=== PATIENT | male | born 1940 | race Caucasian/White ===

== ENCOUNTER 2018-04-17 12:55 | Inpatient (IN) | payer OTHER, MEDICARE ==
--- NOTE | 2018-04-17 13:58 | PDOC ---
History of Present Illness - General Chief Complaint: Injury Stated Complaint: INJURY Time Seen by Provider: 04/17/18 13:47 History Source: Patient Exam Limitations: No Limitations - History of Present Illness Initial Comments: 04/17/18 15:20 Was walking dog this morning, tripped on uneven sidewalk/tree stump and fell to the right side injuring bilateral knees and right hip. Patient was unable to get up immediately and crawled over to stair where he was able to lift himself and get back to his house. States has been using his 's walker for pain progressively worsening so came for emergency evaluation. Occurred: reports: this morning Severity: reports: moderate Pain Location: reports: lower extremity, pelvis Method of Injury: Yes: fall Modifying Factors: improves with: None Loss of Consciousness: no loss of consciousness Past History - Travel Traveled outside of the country in the last 30 days: No Close contact w/someone who was outside of country & ill: No - Past Medical History Allergies/Adverse Reactions: Allergies Allergy/AdvReac Type Severity Reaction Status Date / Time No Known Allergies Allergy Verified 04/17/18 13:23 Home Medications: Ambulatory Orders NK [No Known Home Medication] 08/16/15 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 No: Fever, Malaise HEENTM: Yes: See HPI. No: Symptoms Reported Respiratory: Yes: See HPI. No: Symptoms reported Cardiac (ROS): No: Symptoms Reported ABD/GI: No: Symptoms Reported Musculoskeletal: Yes: Symptoms Reported, See HPI, Joint Pain, Joint Swelling, Muscle Weakness (right leg/ hip) Integumentary: Yes: See HPI. No: Symptoms Reported, Bruising Neurological: Yes: See HPI. No: Symptoms reported, Headache All Other Systems: Reviewed and Negative *Physical Exam - Vital Signs Last Vital Signs Temp Pulse Resp BP Pulse Ox 98.3 F 73 16 97/47 L 96 04/17/18 13:24 04/17/18 13:24 04/17/18 13:24 04/17/18 13:24 04/17/18 13:24 - Physical Exam General Appearance: Yes: Nourished, Appropriately Dressed, Apparent Distress, Mild Distress HEENT: positive: RAYNA, Normal ENT Inspection. negative: TMs Normal Neck: positive: Supple. negative: Tender Respiratory/Chest: positive: Lungs Clear. negative: Chest Tender Gastrointestinal/Abdominal: positive: Normal Bowel Sounds, Soft. negative: Tender Musculoskeletal: positive: Decreased Range of Motion, Other (bilateral ecchymoses and abrasions to knees without crepitus or step-offs, has no true femur tenderness however patient has difficulty moving right leg and weightbearing. Tenderness with pelvic rocking). negative: Normal Inspection, Vertebral Tenderness Extremity: positive: Normal Inspection, Tender. negative: Normal Range of Motion Integumentary: positive: Dry, Warm, Pale Neurologic: positive: neuro ophthalmologist II-XII NML intact, Fully Oriented, Alert, Normal Mood/ Affect, Normal Response, Motor Strength 10/05 ED Treatment Course - LABORATORY CBC & Chemistry Diagram: 04/17/18 15:46 04/17/18 15:46 Medical Decision Making - Medical Decision Making 04/17/18 15:30 CT reveals femoral neck fracture of the right hip. Patient was moved to main emergency department to [address] 11 and preliminary notification to patient about fracture. Patient updated to plan. Case was discussed with Dr. Encarnacion and charge nurse Lynn. 04/17/18 15:34 *DC/Admit/Observation/Transfer Diagnosis at time of Disposition: Hip fracture Qualifiers: Encounter type: initial encounter Fracture type: closed Laterality: right Qualified Code(s): S72.001A - Fracture of unspecified part of neck of right femur, initial encounter for closed fracture - Discharge Dispostion Condition at time of disposition: Guarded - Referrals - Patient Instructions - Post Discharge Activity
[2018-04-17] MEDS ORDERED: morphine CARPU-JECT 4 MG/1 ML DISP.SYRIN IVPUSH ONE (15:48)
--- NOTE | 2018-04-17 15:52 | PDOC ---
*Physical Exam - Vital Signs Last Vital Signs Temp Pulse Resp BP Pulse Ox 98.3 F 73 16 97/47 L 96 04/17/18 13:24 04/17/18 13:24 04/17/18 13:24 04/17/18 13:24 04/17/18 13:24 ED Treatment Course - LABORATORY CBC & Chemistry Diagram: 04/17/18 15:46 04/17/18 15:46 Medical Decision Making - Medical Decision Making 77yo M with history of hypotension and oropharyngeal associated malignancy presenting with hip pain after he fell this morning. Patient was walking his dog when he tripped over an embedded rock in the ground covered by grass. He fell on his right side and was able to ambulate by leaning on another person. Patient is normally able to ambulate on his own, but presented to the ED with the aid of his wifes walker. Patient reports that he only has pain in his hip when he moves it. No fevers, chills, chest pain, or shortness of breath. -Imaging shows "nondisplaced proximal right femoral neck fracture" -Pre-op labs ordered: no anemia or leukocytosis, unremarkable electrolytes, UA negative -Patient declined IV pain medication. -Discussed case with Dr. Pablo who would like patient to be NPO after midnight -Discussed case with inpatient team who accepted patient for admission under Dr. Willis. 04/17/18 17:21 *DC/Admit/Observation/Transfer Diagnosis at time of Disposition: Hip fracture - Discharge Dispostion Condition at time of disposition: Guarded Decision to Admit order: Yes - Referrals Referrals: Gonsalo Willis MD [Primary Care Provider] - - Patient Instructions - Post Discharge Activity
[2018-04-17] MEDS ORDERED: MORPHINE SULFATE 2 MG/ML VIAL ONE (16:17)
[2018-04-17 16:31] LABS: BASO % 0.2 % (0-2.0); EOS % 0.1 % (0-4.5); HEMATOCRIT 42.1 % (35.4-49); HEMOGLOBIN 14.3 GM/dL (11.7-16.9); LYMPH % 7.2 % (8-40); MCH 28.8 pg (25.7-33.7); MCHC 33.9 g/dl (32.0-35.9); MEAN CELL VOLUME 84.9 fl (80-96); MEAN PLT VOLUME 6.8 fl (7.5-11.1); MONO % 8.3 % (3.8-10.2); NEUT % 84.2 % (42.8-82.8); PLATELET COUNT 205 K/MM3 (134-434); RBC 4.97 M/mm3 (4.00-5.60); RDW 14.6 % (11.9-15.9)
[2018-04-17 16:56] LABS: ALBUMIN 3.9 g/dl (3.4-5.0); ALK PHOS 73 U/L (45-117); ANION GAP 7 MMOL/L (8-16); BILIRUBIN,TOTAL 0.6 mg/dL (0.2-1); BLOOD UREA NITROGEN 17 mg/dL (7-18); CALCIUM 9.1 mg/dL (8.5-10.1); CHLORIDE 103 mmol/L (98-107); CO2 29 mmol/L (21-32); CREATININE 0.9 mg/dL (0.55-1.3); GLUCOSE,RANDOM 88 mg/dL (74-106); POTASSIUM 4.5 mmol/L (3.5-5.1); SGOT/AST 16 U/L (15-37); SGPT/ALT 21 U/L (13-61); SODIUM 139 mmol/L (136-145); TOT PROT 6.8 g/dl (6.4-8.2)
[2018-04-17] MEDS ORDERED: SODIUM CHLORIDE 1,000 ML IV STA (16:59)
[2018-04-17 17:04] LABS: INR 0.99 (0.83-1.09); PROTHROMBIN TIME (PATIENT) 11.7 SEC (9.7-13.0)
--- NOTE | 2018-04-17 18:01 | PDOC ---
Attending Attestation - HPI HPI: 04/17/18 18:04 Patient is a 77 year old male with a significant past medical history of who presents to the ED with complaints of right hip pain that began just prior to ED arrival. Patient reports walking outside in the snow when he lost his balance , causing him to slip and fall on his right hip. He reports experiencing no immediate pain but states pain began to gradually increase when attempting to ambulate, prompting him to come into the ED for further evaluation. Denies loss of consciousness, head trauma. Denies chest pain, Sob. Denies nausea , vomiting. Denies fevers, chills. Denies contact with sick individuals, out of state travelling. Denies any other symptoms. Allergies: None Social history: No smoking. No alcohol. No illicit drugs. Surgical history: None PMD: Dr. Willis - Physicial Exam PE: 04/17/18 18:04 Vitals: Triage Vital signs reviewed General Appearance: no acute distress, well nourished well developed Head: Atraumatic Eyes: Pupils equal reactive round, extraocular movement intact Chest Wall: Nontender Cardiac: Regular rate and rhythm, no murmurs, no rubs, no gallops Lungs: Clear to auscultation bilateral, good air movement bilaterally Abdomen: Soft, non distended, normal bowel sounds, non tender to palpation Extremities: +Tenderness to palpation to right hip no cyanosis, clubbing, Skin: Warm and dry, no rashes or lesions, no rash, no petechiae Neuro: AOX3; Cranial Nerves 2-12 grossly intact, Strength intact to all extremities, Sensation intact to all extremities, Psych: Normal mood, normal affect <Jarrett Husain - Last Filed: 04/17/18 18:28> - Resident Resident Name: Jacqueline Moore - ED Attending Attestation I have performed the following: I have examined & evaluated the patient, The case was reviewed & discussed with the resident, I agree w/resident's findings & plan, Exceptions are as noted - Medical Decision Making 04/17/18 21:50 Status post mechanical trip and fall on icy surface., X-ray Positive for nondisplaced right hip fracture on x-ray Orthopedics consult did nothing by mouth after midnight patient admit to medicine for further management. Offered IV pain medication but patient refuses at this time. <Valentin Encarnacion - Last Filed: 04/17/18 21:50>
[2018-04-17 18:30] LABS: URINE APPEARANCE CLEAR; URINE BILIRUBIN NEGATIVE (<2.0 mg/dL); URINE COLOR YELLOW; URINE GLUCOSE (UA) NEGATIVE (NEGATIVE); URINE KETONE NEGATIVE (NEGATIVE); URINE LEUK ESTERASE NEGATIVE (NEGATIVE); URINE NITRITE NEGATIVE (NEGATIVE); URINE PROTEIN NEGATIVE (NEGATIVE); URINE UROBILINOGEN NEGATIVE mg/dL (0.2-1.0)
--- NOTE | 2018-04-17 19:55 | PN ---
Progress Note (short form) - Note Progress Note: Chart reviewed. Plan to take to OR tomorrow afternoon. Will see pt tomorrow.
--- NOTE | 2018-04-17 22:12 | HP ---
Admitting History and Physical - Primary Care Physician PCP: Gonsalo Willis - Admission Chief Complaint: s/p Mechanical Fall, R- Hip Pain History of Present Illness: 77 y/o man from home with a past medical history of Hypotension, Oropharyngeal Ca (Chemo). Who presents to the ED s/p mechanical fall with right hip pain. Patient slipped and fell on rocks while walking in the snow. Patient was unable to bear weight, he usually ambulates with a rollator walker. Patient denies LOC or Head Trauma. He endorses right knee tenderness with abrasion to his right marley aspect and right knee. Patient reports his TD is current. Patient denies parasthesias. Patient denies fever, chills, cough, SOB, Baer, dizziness, CP, AP, N /V/D, constipation, dysuria History Source: Patient Limitations to Obtaining History: No Limitations - Past Medical History Cardiovascular: Yes: Other (Hypotension) ENT: Yes: Other (HPV Tumor to neck (chemo- completed)) - Smoking History Smoking history: Unknown if ever smoked Have you smoked in the past 12 months: No Aproximately how many cigarettes per day: 0 - Alcohol/Substance Use Hx Alcohol Use: No History of Substance Use: reports: None - Social History Usual Living Arrangement: Yes: With Spouse History of Recent Travel: No Home Medications - Allergies Allergies/Adverse Reactions: Allergies Allergy/AdvReac Type Severity Reaction Status Date / Time No Known Allergies Allergy Verified 04/17/18 13:23 - Home Medications Home Medications: Ambulatory Orders NK [No Known Home Medication] 08/16/15 Review of Systems - Review of Systems Constitutional: reports: No Symptoms Eyes: reports: No Symptoms HENT: reports: No Symptoms Neck: reports: No Symptoms Cardiovascular: reports: No Symptoms Respiratory: reports: No Symptoms Gastrointestinal: reports: No Symptoms Genitourinary: reports: No Symptoms Breasts: reports: No Symptoms Reported Musculoskeletal: reports: Joint Pain (right hip, right knee TN) Integumentary: reports: Other (abrasion to right marley, right knee) Neurological: reports: No Symptoms Endocrine: reports: No Symptoms Hematology/Lymphatic: reports: No Symptoms Psychiatric: reports: No Symptoms Pain Intensity: 1 Physical Examination Vital Signs: Vital Signs Temperature 98.5 F 04/17/18 19:48 Pulse Rate 69 04/17/18 19:48 Respiratory Rate 18 04/17/18 19:48 Blood Pressure 113/58 L 04/17/18 19:48 O2 Sat by Pulse Oximetry (%) 97 04/17/18 19:48 Constitutional: Yes: No Distress, Calm, Thin Eyes: Yes: WNL, Conjunctiva Clear, EOM Intact, PERRL HENT: Yes: WNL, Atraumatic, Normocephalic Neck: Yes: Supple, Trachea Midline Cardiovascular: Yes: WNL, Regular Rate and Rhythm, S1, S2 Respiratory: Yes: WNL, Regular, CTA Bilaterally Gastrointestinal: Yes: WNL, Normal Bowel Sounds, Soft ...Rectal Exam: Yes: Deferred Renal/: Yes: WNL Breast(s): Yes: WNL Musculoskeletal: Yes: Other (right) Extremities: Yes: External Rotation Edema: No Peripheral Pulses WNL: Yes Wound/Incision: Yes: Other (abrasins to right marley, right knee) ...Motor Strength: WNL Psychiatric: Yes: WNL, Alert, Oriented Labs: CBC, BMP 04/17/18 15:46 04/17/18 15:46 Current Medications Generic Name Dose Route Start Last Admin Trade Name Freq PRN Reason Stop Dose Admin Dextrose/Sodium Chloride 1,000 mls @ 42 mls/hr 04/18/18 00:01 04/18/18 02:03 D5-1/2ns - IV 42 mls/hr ASDIR CHAPIN Administration Intake & Output 04/15/18 04/16/18 04/17/18 04/18/18 23:59 23:59 23:59 23:59 Intake Total 294 Balance 294 Weight 80.739 kg 82.962 kg Imaging - Results Chest X-ray: Report Reviewed, Image Reviewed X-ray: Report Reviewed, Image Reviewed Cat Scan: Report Reviewed, Image Reviewed Problem List - Problems (1) Hip fracture Assessment/Plan: s/p mechanical fall R Hip/Pelvis Xray- nondisplaced proximal R femoral fx CT R- Hip- Acute mildly impacted right femoral neck fx Ortho aware- OR tomorrow Fall precautions Pain Mgmt Code(s): S72.009A - FRACTURE OF UNSP PART OF NECK OF UNSP FEMUR, INIT Qualifiers: Encounter type: initial encounter Fracture type: closed Laterality: right Qualified Code(s): S72.001A - Fracture of unspecified part of neck of right femur, initial encounter for closed fracture (2) Fall Assessment/Plan: s/p mechanical fall Hip/Pelvis xray- nondisplaced proximal R-femoral nck fractures CT Right Hip- Acute mildly impacted right femoral neck fracture Ortho consulted by ED resident- Dr Pablo aware, OR tomorrow Keep NPO after midnight, with IVF Neurovascular checks Monitor vitals Morphine Sulfate Pain Management- pt declines Consider Ofirmev Fall precautions Code(s): W19.XXXA - UNSPECIFIED FALL, INITIAL ENCOUNTER (3) Oropharyngeal cancer Assessment/Plan: per pt completed Chemo Code(s): C10.9 - MALIGNANT NEOPLASM OF OROPHARYNX, UNSPECIFIED Assessment/Plan 77 y/o man with PMHx of: Hypotension, Oropharyngeal Ca (chemo). Admitted for R- Displaced Hip Fx secondary to mechanical Fall for further evaluation of their emergent condition. Plan: FEN D51/2NS@42ml/hr Replete lytes prn NPO DVT ppx SCDs Dispo: Requires Inpatient Care Visit type - Emergency Visit Emergency Visit: Yes ED Registration Date: 04/17/18 Care time: The patient presented to the Emergency Department on the above date and was hospitalized for further evaluation of their emergent condition. - New Patient This patient is new to me today: Yes Date on this admission: 04/17/18 - Critical Care Critical Care patient: No
[2018-04-18] MEDS ORDERED: DEXTROSE 5%-0.45% SALINE 1,000 ML IV SCH ×2 (00:01→17:19)
[2018-04-18 02:22] VITALS: BMI 22.8
[2018-04-18] MEDS ORDERED: ACETAMINOPHEN 1000 MG/100 ML VIAL (NON FORMULARY) IVPB PRN (07:03)
[2018-04-18 07:11] LABS: BASO % 0.5 % (0-2.0); EOS % 1.6 % (0-4.5); HEMATOCRIT 39.8 % (35.4-49); HEMOGLOBIN 13.2 GM/dL (11.7-16.9); LYMPH % 13.2 % (8-40); MCHC 33.1 g/dl (32.0-35.9); MEAN CELL VOLUME 84.5 fl (80-96); MEAN PLT VOLUME 6.5 fl (7.5-11.1); MONO % 9.6 % (3.8-10.2); NEUT % 75.1 % (42.8-82.8); PLATELET COUNT 166 K/MM3 (134-434); RBC 4.71 M/mm3 (4.00-5.60); RDW 14.2 % (11.9-15.9); WHITE BLOOD COUNT 5.9 K/mm3 (4.0-10.0)
[2018-04-18 07:39] LABS: ANION GAP 6 MMOL/L (8-16); BLOOD UREA NITROGEN 17 mg/dL (7-18); CALCIUM 8.4 mg/dL (8.5-10.1); CHLORIDE 105 mmol/L (98-107); CO2 28 mmol/L (21-32); CREATININE 1.1 mg/dL (0.55-1.3); GLUCOSE,RANDOM 105 mg/dL (74-106); POTASSIUM 4.3 mmol/L (3.5-5.1); SODIUM 139 mmol/L (136-145)
--- NOTE | 2018-04-18 08:51 | EKG ---
Test Reason : Blood Pressure : / mmHG Vent. Rate : 070 BPM Atrial Rate : 070 BPM P-R Int : 188 ms QRS Dur : 098 ms QT Int : 414 ms P-R-T Axes : 045 -12 027 degrees QTc Int : 447 ms POOR DATA QUALITY, INTERPRETATION MAY BE ADVERSELY AFFECTED NORMAL SINUS RHYTHM LOW VOLTAGE QRS Confirmed by MEHDI PARKINSON MD ([id number]) on 04/18/2018 8:50:46 AM Referred By: Confirmed By:MEHDI PARKINSON MD
--- NOTE | 2018-04-18 10:51 | PN ---
Progress Note, Physician Chief Complaint: awake alert mild distress - Current Medication List Current Medications: Active Medications Acetaminophen (Ofirmev Injection -) 1,000 mg IVPB Q6H PRN PRN Reason: PAIN LEVEL 7 - 10 Dextrose/Sodium Chloride (D5-1/2ns -) 1,000 mls @ 42 mls/hr IV ASDIR CHAPIN Last Admin: 04/18/18 02:03 Dose: 42 mls/hr - Objective Vital Signs: Vital Signs Temperature 98.9 F 04/18/18 02:12 Pulse Rate 72 04/18/18 02:12 Respiratory Rate 17 04/18/18 02:12 Blood Pressure 138/68 04/18/18 02:12 O2 Sat by Pulse Oximetry (%) 98 04/18/18 02:38 Constitutional: Yes: Mild Distress Eyes: Yes: WNL HENT: Yes: WNL Neck: Yes: WNL Cardiovascular: Yes: WNL Respiratory: Yes: WNL Gastrointestinal: Yes: WNL Genitourinary: Yes: WNL Musculoskeletal: Yes: Muscle Pain, Muscle Weakness Extremities: Yes: Other Edema: No Peripheral Pulses WNL: Yes Integumentary: Yes: WNL Wound/Incision: Yes: Clean/Dry Neurological: Yes: Unsteady Gait ...Motor Strength: RLE (right hip fracture) Psychiatric: Yes: WNL Labs: CBC, BMP 04/18/18 06:00 04/18/18 06:00 INR, PTT INR 0.99 (0.83-1.09) 04/17/18 15:46 Problem List - Problems (1) Fall Code(s): W19.XXXA - UNSPECIFIED FALL, INITIAL ENCOUNTER (2) Hip fracture Code(s): S72.009A - FRACTURE OF UNSP PART OF NECK OF UNSP FEMUR, INIT Qualifiers: Encounter type: initial encounter Fracture type: closed Laterality: right Qualified Code(s): S72.001A - Fracture of unspecified part of neck of right femur, initial encounter for closed fracture Assessment/Plan medically cleared for hip surgery right pain control dvt prophylaxis pt snf
[2018-04-18] MEDS ORDERED: MIDAZOLAM HCL 2 MG/2 ML SINGLE DOSE VIAL ONE (15:38)
[2018-04-18] MEDS ORDERED: BUPIVACAINE HCL/PF 0.5% (5MG/ML) 10 ML VIAL ONE (15:41)
[2018-04-18] MEDS ORDERED: ceFAZolin SODIUM 1 GM VIAL IVPB ONE (16:05)
--- NOTE | 2018-04-18 17:00 | OP ---
Operative Note - Note: Operative Date: 04/18/18 Pre-Operative Diagnosis: right femoral neck fracture, impacted Operation: right hip pinning Implants: andre 6.5mm cannulated screws Post-Operative Diagnosis: Same as Pre-op Surgeon: Mark Pablo Anesthesiologist/CHRONOMETER ADJUSTER: Sonido Mcdonnell Anesthesia: Spinal Estimated Blood Loss (mls): 100 Operative Report Dictated: Yes
[2018-04-18] MEDS ORDERED: oxyCODONE HCL 5 MG TABLET PO PRN (17:38)
[2018-04-18] MEDS ORDERED: ACETAMINOPHEN 325 MG TABLET (FP) PO PRN (17:38)
[2018-04-18] MEDS ORDERED: ONDANSETRON 4 MG/2 ML VIAL IVPUSH PRN (18:51)
[2018-04-18] MEDS ORDERED: LACTATED RINGERS SOLUTION 1,000 ML IV SCH (19:00)
[2018-04-18] MEDS: ACETAMINOPHEN 1000 MG/100 ML VIAL (NON FORMULARY) IVPB PRN (19:50)
--- NOTE | 2018-04-18 20:29 | OP ---
DATE OF OPERATION: 04/18/2018 PREOPERATIVE DIAGNOSIS: Right valgus impacted femoral neck fracture. POSTOPERATIVE DIAGNOSIS: Right valgus impacted femoral neck fracture. PROCEDURE: Right hip pinning. SURGEON: Mark Pablo MD ANESTHESIA: General. POSTOPERATIVE CONDITION: Stable. COMPLICATIONS: None. BLOOD LOSS: 100 mL. IMPLANTS: Susan 6.5-mm cannulated screws x4. Kendra RANDLE/[id number]
--- NOTE | 2018-04-18 20:56 | CONS ---
DATE OF CONSULTATION: 04/18/2018 CHIEF COMPLAINT: Right hip pain. HISTORY OF PRESENT ILLNESS: The patient is a pleasant 77-year-old who had suffered a fall while walking his dog. He had pain after falling. He was brought to the ER and found to have a hip fracture. Given that it was impacted and slightly valgus orientation, the patient was indicated for operative care. Orthopaedic consultation was called. PAST MEDICAL HISTORY: Includes hypotension and oropharyngeal cancer treated with chemotherapy. MEDICATIONS: Reviewed as in chart. SOCIAL HISTORY: Denies alcohol, tobacco, or drugs. Live at home with his . ALLERGIES: Denies. REVIEW OF SYMPTOMS: No fever, chills, nausea, vomiting, night sweats, double vision, loss of vision. No shortness of breath or wheezing. No palpitations. No dyspnea on exertion. No numbness or tingling. PHYSICAL EXAMINATION: General: This is a well-appearing male in no acute distress. He is seen lying on a hospital stretcher. EXTREMITIES: Examination of the right lower extremity demonstrates some abrasions over the knee. Examination of the hip demonstrates no gross deformity. He has pain with any range of motion. The knee has slight tenderness over the anterior aspect where the abrasions are. His ankle is nontender. Distally sensation is intact to light touch. Has 2+ DP pulse, 5/5 distal motor. Radiographs including plain film and CT are reviewed. There is an impacted valgus femoral neck fracture with no significant displacement. ASSESSMENT: Right impacted femoral neck fracture. PLAN: I reviewed today's findings with the patient. I advised that he has an impacted femoral neck fracture. I discussed that I believe that the best option for him is to have a hip pinning. This would be placing specialized screws into the hip to help stabilize this break while it heals on its own. We discussed that there is a slight amount of stepoff of about 1 mm or 2 on his inferior femoral neck. There is a possibility of leg displacement. If this does occur, hemiarthroplasty would be necessary. We discussed the option of hemiarthroplasty as a primary procedure, which involves significantly higher potential risks including more blood loss, prolonged operating room time, and more limitations postoperatively. I reviewed the risks of his hip pinning including bleeding, infection, neurovascularly intact, need for further surgery including hemiarthroplasty or arthroplasty, postoperative pain and stiffness, nonunion, malunion, hardware failure, or cutout. We discussed medical risks such as heart attack, stroke, DVT, PE, and . I addressed the postoperative rehabilitation protocol including protected weightbearing. The patient's questions were addressed. He voiced understanding and elected to proceed. IMPLANTS: Susan 6.5-mm cannulated screws 95 mm x2, 100 mm x2. DESCRIPTION OF PROCEDURE: The patient was brought to the operating room where spinal anesthetic was administered. The patient was placed onto the fracture table careful to pad all of the bony prominences. The right lower extremity was placed into gentle traction, adduction, and slight internal rotation. The patient was then prepped and draped in the usual sterile fashion. A preoperative dose of antibiotics was given, and the usual time-out procedure was performed. The incision was now marked out over the femur. It was carried down through skin to subcutaneous tissue. A guidewire was now inserted along the course of the femoral neck into the femoral head. Utilizing a parallel guide, 3 additional wires were inserted forming a horacio pattern. Guidewire placement was confirmed fluoroscopically in 2 planes. The guidewires were now overdrilled utilizing the cannulated drill. They were measured and then two 100-mm and two 95-mm screws were inserted under fluoroscopic guidance. Screw placement was satisfactory. The guide pins were then removed. The wound was irrigated. The subcutaneous tissue was now approximated utilizing 3-0 Vicryl. The skin was closed using running 3-0 nylon. Sterile dressings were placed. The patient was transferred to the recovery room in stable condition. Kendra [id number]
[2018-04-18] MEDS: CALCIUM 500MG/VIT-D 200 UNITS COMBO TABLET (FP) PO SCH (22:49)
[2018-04-18] MEDS: DOCUSATE SODIUM 100 MG CAPSULE (FP) PO SCH (22:50)
[2018-04-19] MEDS: CALCIUM 500MG/VIT-D 200 UNITS COMBO TABLET (FP) PO SCH ×3 (00:07→21:46)
[2018-04-19] MEDS: DOCUSATE SODIUM 100 MG CAPSULE (FP) PO SCH ×4 (00:07→21:46)
[2018-04-19] MEDS ORDERED: DEXTROSE 5%-WATER - 50 ML IVPB ONE ×3 (00:40→16:58)
[2018-04-19] MEDS ORDERED: ceFAZolin SODIUM 1 GM VIAL ONE ×3 (00:40→16:58)
[2018-04-19] MEDS: CEFAZOLIN 1 GM in DEXTROSE 5%-WATER - 50 ML IVPB SCH ×4 (02:38→17:17)
[2018-04-19] MEDS: ACETAMINOPHEN 1000 MG/100 ML VIAL (NON FORMULARY) IVPB PRN (09:36)
--- NOTE | 2018-04-19 09:39 | PN ---
Progress Note, Physician Chief Complaint: day1 s/p right hip pinning - Current Medication List Current Medications: Active Medications Acetaminophen (Ofirmev Injection -) 1,000 mg IVPB Q6H PRN PRN Reason: PAIN LEVEL 7 - 10 Last Admin: 04/19/18 09:36 Dose: 1,000 mg Acetaminophen (Tylenol -) 325 mg PO Q6H PRN PRN Reason: PAIN LEVEL 1-5 Calcium Carbonate/Cholecalciferol (Os-Parmjit 500+D -) 1 tab PO BID [facility] Last Admin: 04/19/18 09:38 Dose: 1 tab Docusate Sodium (Colace -) 100 mg PO TID [facility] Last Admin: 04/19/18 07:06 Dose: 100 mg Enoxaparin Sodium (Lovenox -) 40 mg SQ DAILY [facility] Last Admin: 04/19/18 09:37 Dose: 40 mg Dextrose/Sodium Chloride (D5-1/2ns -) 1,000 mls @ 42 mls/hr IV ASDIR [facility] Last Admin: 04/18/18 22:48 Dose: 42 mls/hr Cefazolin Sodium 1 gm/ (Dextrose) 50 mls @ 100 mls/hr IVPB Q8H-IV [facility] Stop: 04/19/18 17:59 Last Admin: 04/19/18 09:38 Dose: 100 mls/hr Lactated Ringer's (Lactated Ringers Solution) 1,000 mls @ 125 mls/hr IV ASDIR [facility] Last Admin: 04/19/18 06:58 Dose: Not Given Oxycodone HCl (Roxicodone -) 5 mg PO Q6H PRN PRN Reason: PAIN LEVEL 1-5 Last Admin: 04/19/18 03:53 Dose: 5 mg - Objective Vital Signs: Vital Signs Temperature 98.7 F 04/19/18 09:00 Pulse Rate 80 04/19/18 09:00 Respiratory Rate 16 04/19/18 09:00 Blood Pressure 95/46 L 04/19/18 09:00 O2 Sat by Pulse Oximetry (%) 96 04/18/18 21:00 Labs: CBC, BMP 04/18/18 06:00 04/18/18 06:00 INR, PTT INR 0.99 (0.83-1.09) 04/17/18 15:46 Assessment/Plan doing well s/p spinal for hip pinning. Minimal pain; asking for PT to ambulate
--- NOTE | 2018-04-19 09:52 | PN ---
Progress Note, Physician History of Present Illness: Feels well, resting in bed - Current Medication List Current Medications: Active Medications Acetaminophen (Ofirmev Injection -) 1,000 mg IVPB Q6H PRN PRN Reason: PAIN LEVEL 7 - 10 Last Admin: 04/19/18 09:36 Dose: 1,000 mg Acetaminophen (Tylenol -) 325 mg PO Q6H PRN PRN Reason: PAIN LEVEL 1-5 Calcium Carbonate/Cholecalciferol (Os-Parmjit 500+D -) 1 tab PO BID [facility] Last Admin: 04/19/18 09:38 Dose: 1 tab Docusate Sodium (Colace -) 100 mg PO TID [facility] Last Admin: 04/19/18 07:06 Dose: 100 mg Enoxaparin Sodium (Lovenox -) 40 mg SQ DAILY [facility] Last Admin: 04/19/18 09:37 Dose: 40 mg Dextrose/Sodium Chloride (D5-1/2ns -) 1,000 mls @ 42 mls/hr IV ASDIR [facility] Last Admin: 04/18/18 22:48 Dose: 42 mls/hr Cefazolin Sodium 1 gm/ (Dextrose) 50 mls @ 100 mls/hr IVPB Q8H-IV [facility] Stop: 04/19/18 17:59 Last Admin: 04/19/18 09:38 Dose: 100 mls/hr Lactated Ringer's (Lactated Ringers Solution) 1,000 mls @ 125 mls/hr IV ASDIR [facility] Last Admin: 04/19/18 06:58 Dose: Not Given Oxycodone HCl (Roxicodone -) 5 mg PO Q6H PRN PRN Reason: PAIN LEVEL 1-5 Last Admin: 04/19/18 03:53 Dose: 5 mg - Objective Vital Signs: Vital Signs Temperature 98.7 F 04/19/18 09:00 Pulse Rate 80 04/19/18 09:00 Respiratory Rate 16 04/19/18 09:00 Blood Pressure 95/46 L 04/19/18 09:00 O2 Sat by Pulse Oximetry (%) 96 04/18/18 21:00 Constitutional: Yes: Well Nourished, No Distress, Calm Musculoskeletal: Yes: Other (Dressing CDI, mild edema of the hip. Smooth Motion. Calf nontender. Comparmtments soft. NVID.) Labs: CBC, BMP 04/18/18 06:00 04/18/18 06:00 INR, PTT INR 0.99 (0.83-1.09) 04/17/18 15:46 Assessment/Plan #1 POD s/p right hip ORIF -TTWB, PT -Pain control -DVT prophaxis -Discharge planning
[2018-04-19] MEDS ORDERED: ENOXAPARIN NA (PORCINE) 40 MG/0.4 ML DISP.SYRIN SQ SCH (10:00)
[2018-04-19] MEDS ORDERED: SODIUM CHLORIDE 0.9% 500 ML INFUS.BAG IV ONE (10:58)
[2018-04-19] MEDS ORDERED: SODIUM CHLORIDE 250 ML IV STA (11:11)
--- NOTE | 2018-04-19 11:11 | RAPID ---
Addendum entered and electronically signed by Conrad Gilman, RESIDENT 04/19/18 12:47: Dr. Grijalva notified and in attendance during Rapid response. Dr. Willis notified as well. Addendum entered and electronically signed by Conrad Gilman, RESIDENT 04/19/18 12:45: Pt. on initial examination did not remember the events after losing consciousness for about 30 seconds. After being seated he regained consciousness and started talking, remembering the event. Original Note: <Conrad Gilman - Last Filed: 04/19/18 11:24> Physical Examination Vital Signs: Vital Signs Temperature 100.3 F H 04/19/18 09:26 Pulse Rate 80 04/19/18 09:26 Respiratory Rate 18 04/19/18 09:26 Blood Pressure 104/58 L 04/19/18 09:26 O2 Sat by Pulse Oximetry (%) 97 04/19/18 09:00 Labs: CBC, BMP 04/18/18 06:00 04/18/18 06:00 Rapid Response - Rapid Response Assessment: At 10:50 am Rapid was called. At 10:51 am team assembled. Per Physical therapist who was present, Pt. felt weak while walking with physical therapist and slipped to the ground on his knees with assistance. Pt. did not lose consciousness. VS: BP: 80/37, HR: 57, SpO2: 99%. PE: NAD EYES: PERRL, EOMI ENT: MMM, no exudates LUNGS: CTAB, no accessory muscle use, no wheezes, no crackles Heart: Tachy, nml S1, S@, RRR ABD: BS+, NT, ND, soft EXT: Move all limbs spontaneously, normal ROM passively and against resistance, 2+ dpp, TTP at right hip( s/p ORIF), no erythema A/P: 77 y.o M w/ Hx. of syncope, s/p ORIF POD #1 EKG showed NSR. Trops, CXR. R. Hip X-ray, BMP, 250ml fluid bolus, NS @ 100ml/hr , and transfer to Telemetry ordered. UA, orthostatic hypotension and Incentive Spirometer were ordered. <Nicole Muhammad - Last Filed: 04/19/18 13:53> Physical Examination Vital Signs: Findings/Remarks: correction to resident note; the patient was walking with PT when he felt very light headed shortly after he got up out of bed. He fell to the floor but was lowered by PT and assist. he landed on his knees. per therapist , patient had LOC briefly. denies any CP , sob , palpitations before of after the event. diagnosis , syncope due to hypotension . probably hypovolemia after sx . repeat blood pressure in supine position after being moved form chair is 90/50 . started IVF EKG to r/o [place] trop xray of hip primary notified Labs: CBC, BMP 04/18/18 06:00 04/19/18 11:15
--- NOTE | 2018-04-19 11:20 | PN ---
Progress Note, Physician Chief Complaint: RAPID RESPONSE CALLED PATIENT SYNCOPIZED WHILE WALKING WITH PT AWAKE ALERT - Current Medication List Current Medications: Active Medications Acetaminophen (Ofirmev Injection -) 1,000 mg IVPB Q6H PRN PRN Reason: PAIN LEVEL 7 - 10 Last Admin: 04/19/18 09:36 Dose: 1,000 mg Acetaminophen (Tylenol -) 325 mg PO Q6H PRN PRN Reason: PAIN LEVEL 1-5 Calcium Carbonate/Cholecalciferol (Os-Parmjit 500+D -) 1 tab PO BID [facility] Last Admin: 04/19/18 09:38 Dose: 1 tab Docusate Sodium (Colace -) 100 mg PO TID [facility] Last Admin: 04/19/18 07:06 Dose: 100 mg Enoxaparin Sodium (Lovenox -) 40 mg SQ DAILY [facility] Last Admin: 04/19/18 09:37 Dose: 40 mg Dextrose/Sodium Chloride (D5-1/2ns -) 1,000 mls @ 42 mls/hr IV ASDIR [facility] Last Admin: 04/18/18 22:48 Dose: 42 mls/hr Cefazolin Sodium 1 gm/ (Dextrose) 50 mls @ 100 mls/hr IVPB Q8H-IV [facility] Stop: 04/19/18 17:59 Last Admin: 04/19/18 09:38 Dose: 100 mls/hr Lactated Ringer's (Lactated Ringers Solution) 1,000 mls @ 125 mls/hr IV ASDIR [facility] Last Admin: 04/19/18 06:58 Dose: Not Given Sodium Chloride (Normal Saline -) 250 mls @ 250 mls/hr IV ASDIR [facility] Stop: 04/19/18 12:10 Oxycodone HCl (Roxicodone -) 5 mg PO Q6H PRN PRN Reason: PAIN LEVEL 1-5 Last Admin: 04/19/18 03:53 Dose: 5 mg - Objective Vital Signs: Vital Signs Temperature 100.3 F H 04/19/18 09:26 Pulse Rate 80 04/19/18 09:26 Respiratory Rate 18 04/19/18 09:26 Blood Pressure 104/58 L 04/19/18 09:26 O2 Sat by Pulse Oximetry (%) 97 04/19/18 09:00 Constitutional: Yes: Mild Distress Eyes: Yes: WNL HENT: Yes: WNL Neck: Yes: WNL Cardiovascular: Yes: WNL Respiratory: Yes: WNL Gastrointestinal: Yes: WNL Genitourinary: Yes: WNL Musculoskeletal: Yes: Muscle Pain, Muscle Weakness Extremities: Yes: Other Edema: No Peripheral Pulses WNL: Yes Integumentary: Yes: Other Wound/Incision: Yes: Clean/Dry Neurological: Yes: Unsteady Gait ...Motor Strength: LLE, RLE Psychiatric: Yes: WNL Labs: CBC, BMP 04/18/18 06:00 04/18/18 06:00 INR, PTT INR 0.99 (0.83-1.09) 04/17/18 15:46 Problem List - Problems (1) Fall Code(s): W19.XXXA - UNSPECIFIED FALL, INITIAL ENCOUNTER (2) Hip fracture Code(s): S72.009A - FRACTURE OF UNSP PART OF NECK OF UNSP FEMUR, INIT Qualifiers: Encounter type: initial encounter Fracture type: closed Laterality: right Qualified Code(s): S72.001A - Fracture of unspecified part of neck of right femur, initial encounter for closed fracture (3) Syncope and collapse Code(s): R55 - SYNCOPE AND COLLAPSE Assessment/Plan TRANSFER TO TELE CARDIAC ENZYMES STAT SENDING OUT UA FALL RISKS NEURO CHECKS DVT PROPHYLAXIS OOB TO CHAIR WITH ASSIST ONLY
[2018-04-19] MEDS ORDERED: SODIUM CHLORIDE 1,000 ML IV SCH (11:30)
[2018-04-19 12:27] LABS: CO2 25 mmol/L (21-32)
[2018-04-19 12:34] LABS: ANION GAP 8 MMOL/L (8-16); BLOOD UREA NITROGEN 16 mg/dL (7-18); CALCIUM 8.4 mg/dL (8.5-10.1); CHLORIDE 103 mmol/L (98-107); GLUCOSE,RANDOM 113 mg/dL (74-106); POTASSIUM 3.9 mmol/L (3.5-5.1); SODIUM 137 mmol/L (136-145)
[2018-04-19] MEDS ORDERED: ACETAMINOPHEN 1000 MG/100 ML VIAL (NON FORMULARY) IVPB PRN (14:51)
[2018-04-19] MEDS ORDERED: oxyCODONE HCL 5 MG TABLET PO PRN (14:51)
[2018-04-19] MEDS ORDERED: ACETAMINOPHEN 325 MG TABLET (FP) PO PRN (14:51)
--- NOTE | 2018-04-19 15:03 | EKG ---
Test Reason : Blood Pressure : / mmHG Vent. Rate : 068 BPM Atrial Rate : 068 BPM P-R Int : 198 ms QRS Dur : 102 ms QT Int : 404 ms P-R-T Axes : 070 -11 022 degrees QTc Int : 429 ms NORMAL SINUS RHYTHM LOW VOLTAGE QRS WHEN COMPARED WITH ECG OF 17-APR-2018 15:44, NO SIGNIFICANT CHANGE WAS FOUND Confirmed by Kurtis Alexander ([id number]) on 04/19/2018 3:02:43 PM Referred By: Hilaria PAYNE Confirmed By:Kurtis Alexander
[2018-04-19 16:45] LABS: URINE APPEARANCE CLEAR; URINE BILIRUBIN NEGATIVE (<2.0 mg/dL); URINE COLOR YELLOW; URINE GLUCOSE (UA) NEGATIVE (NEGATIVE); URINE KETONE TRACE (NEGATIVE); URINE LEUK ESTERASE NEGATIVE (NEGATIVE); URINE NITRITE NEGATIVE (NEGATIVE); URINE PROTEIN NEGATIVE (NEGATIVE); URINE UROBILINOGEN NEGATIVE mg/dL (0.2-1.0)
[2018-04-20] MEDS ORDERED: ceFAZolin SODIUM 1 GM VIAL ONE ×2 (03:49→10:28)
[2018-04-20] MEDS ORDERED: DEXTROSE 5%-WATER - 50 ML IVPB ONE ×2 (03:50→10:28)
[2018-04-20] MEDS: CEFAZOLIN 1 GM in DEXTROSE 5%-WATER - 50 ML IVPB SCH ×2 (03:53→10:46)
[2018-04-20] MEDS: DOCUSATE SODIUM 100 MG CAPSULE (FP) PO SCH ×3 (06:19→21:34)
[2018-04-20 07:37] LABS: HEMATOCRIT 37.6 % (35.4-49); HEMOGLOBIN 12.4 GM/dL (11.7-16.9); MCH 27.9 pg (25.7-33.7); MEAN CELL VOLUME 84.6 fl (80-96); MEAN PLT VOLUME 6.9 fl (7.5-11.1); PLATELET COUNT 155 K/MM3 (134-434); RBC 4.45 M/mm3 (4.00-5.60); RDW 14.5 % (11.9-15.9); WHITE BLOOD COUNT 5.7 K/mm3 (4.0-10.0)
[2018-04-20 08:29] LABS: ALBUMIN 2.9 g/dl (3.4-5.0); ALK PHOS 58 U/L (45-117); ANION GAP 3 MMOL/L (8-16); BILIRUBIN,TOTAL 1.1 mg/dL (0.2-1); BLOOD UREA NITROGEN 13 mg/dL (7-18); CALCIUM 8.3 mg/dL (8.5-10.1); CHLORIDE 108 mmol/L (98-107); CO2 27 mmol/L (21-32); CREATININE 0.9 mg/dL (0.55-1.3); GLUCOSE,RANDOM 95 mg/dL (74-106); SGOT/AST 19 U/L (15-37); SGPT/ALT 12 U/L (13-61); SODIUM 138 mmol/L (136-145); TOT PROT 5.7 g/dl (6.4-8.2)
[2018-04-20] MEDS ORDERED: ENOXAPARIN NA (PORCINE) 40 MG/0.4 ML DISP.SYRIN SQ SCH (10:00)
[2018-04-20] MEDS: CALCIUM 500MG/VIT-D 200 UNITS COMBO TABLET (FP) PO SCH ×2 (10:47→21:34)
--- NOTE | 2018-04-20 10:51 | PN ---
Progress Note, Physician History of Present Illness: He feels good today. He 'passed out' during PT yesterday after 'standing up too quickly'. He states at home in the past he sometimes gets a little dizzy if he stands up to quickly and he did not wait a few minutes before starting PT which is why he passed out according to him. He is eager to try PT again. - Current Medication List Current Medications: Active Medications Acetaminophen (Tylenol -) 325 mg PO Q6H PRN PRN Reason: PAIN LEVEL 1-5 Acetaminophen (Ofirmev Injection -) 1,000 mg IVPB Q6H PRN PRN Reason: PAIN LEVEL 7 - 10 Last Admin: 04/19/18 22:30 Dose: 1,000 mg Calcium Carbonate/Cholecalciferol (Os-Parmjit 500+D -) 1 tab PO BID [facility] Last Admin: 04/20/18 10:47 Dose: 1 tab Docusate Sodium (Colace -) 100 mg PO TID [facility] Last Admin: 04/20/18 06:19 Dose: 100 mg Enoxaparin Sodium (Lovenox -) 40 mg SQ DAILY [facility] Last Admin: 04/20/18 10:46 Dose: 40 mg Cefazolin Sodium 1 gm/ (Dextrose) 50 mls @ 100 mls/hr IVPB Q8H-IV [facility] Stop: 04/20/18 16:59 Last Admin: 04/20/18 10:46 Dose: 100 mls/hr Oxycodone HCl (Roxicodone -) 5 mg PO Q6H PRN PRN Reason: PAIN LEVEL 1-5 - Objective Vital Signs: Vital Signs Temperature 98.1 F 04/20/18 05:48 Pulse Rate 64 04/20/18 05:48 Respiratory Rate 18 04/20/18 05:48 Blood Pressure 115/63 04/20/18 05:48 O2 Sat by Pulse Oximetry (%) 97 04/19/18 21:00 Constitutional: Yes: Well Nourished, No Distress, Calm Musculoskeletal: Yes: Other (Dressing CDI. Smooth ROM of hip. minimal discomfort with ROM of hip. NVID. Compartments soft. Calf nontender.) Labs: CBC, BMP 04/20/18 06:00 04/20/18 06:00 INR, PTT INR 0.99 (0.83-1.09) 04/17/18 15:46 Assessment/Plan #1 POD #2 s/p right hip pinning -PT TTWB -Pain control -DVT prophaxis -Discharge planning.
--- NOTE | 2018-04-20 11:10 | PN ---
Progress Note, Physician Chief Complaint: AWAKE ALERT FEELING BETTER - Current Medication List Current Medications: Active Medications Acetaminophen (Tylenol -) 325 mg PO Q6H PRN PRN Reason: PAIN LEVEL 1-5 Acetaminophen (Ofirmev Injection -) 1,000 mg IVPB Q6H PRN PRN Reason: PAIN LEVEL 7 - 10 Last Admin: 04/19/18 22:30 Dose: 1,000 mg Calcium Carbonate/Cholecalciferol (Os-Parmjit 500+D -) 1 tab PO BID [facility] Last Admin: 04/20/18 10:47 Dose: 1 tab Docusate Sodium (Colace -) 100 mg PO TID [facility] Last Admin: 04/20/18 06:19 Dose: 100 mg Enoxaparin Sodium (Lovenox -) 40 mg SQ DAILY [facility] Last Admin: 04/20/18 10:46 Dose: 40 mg Oxycodone HCl (Roxicodone -) 5 mg PO Q6H PRN PRN Reason: PAIN LEVEL 1-5 - Objective Vital Signs: Vital Signs Temperature 97.9 F 04/20/18 10:00 Pulse Rate 75 04/20/18 10:00 Respiratory Rate 18 04/20/18 10:00 Blood Pressure 108/58 L 04/20/18 10:00 O2 Sat by Pulse Oximetry (%) 97 04/19/18 21:00 Constitutional: Yes: No Distress Eyes: Yes: WNL HENT: Yes: WNL Neck: Yes: WNL Cardiovascular: Yes: WNL Respiratory: Yes: WNL Gastrointestinal: Yes: WNL Genitourinary: Yes: WNL Musculoskeletal: Yes: Other Extremities: Yes: WNL Edema: No Peripheral Pulses WNL: Yes Integumentary: Yes: WNL Wound/Incision: Yes: Clean/Dry Neurological: Yes: WNL ...Motor Strength: RLE Psychiatric: Yes: WNL Labs: CBC, BMP 04/20/18 06:00 04/20/18 06:00 INR, PTT INR 0.99 (0.83-1.09) 04/17/18 15:46 Problem List - Problems (1) Fall Code(s): W19.XXXA - UNSPECIFIED FALL, INITIAL ENCOUNTER (2) Hip fracture Code(s): S72.009A - FRACTURE OF UNSP PART OF NECK OF UNSP FEMUR, INIT Qualifiers: Encounter type: initial encounter Fracture type: closed Laterality: right Qualified Code(s): S72.001A - Fracture of unspecified part of neck of right femur, initial encounter for closed fracture (3) Syncope and collapse Code(s): R55 - SYNCOPE AND COLLAPSE Assessment/Plan DC TELEMETRY NO [facility] MED/SURG DC PLANNING PAIN CONTROL SAMEER
[2018-04-20] MEDS: SENNOSIDES 8.6MG TABLET (FP) PO SCH ×2 (15:40→21:34)
[2018-04-20] MEDS: oxyCODONE HCL 5 MG TABLET PO PRN (21:35)
[2018-04-20] MEDS: ACETAMINOPHEN 325 MG TABLET (FP) PO PRN (21:36)
[2018-04-21] MEDS: DOCUSATE SODIUM 100 MG CAPSULE (FP) PO SCH ×2 (05:41→14:44)
[2018-04-21] MEDS ORDERED: ENOXAPARIN NA (PORCINE) 40 MG/0.4 ML DISP.SYRIN SQ SCH (10:00)
[2018-04-21] MEDS: CALCIUM 500MG/VIT-D 200 UNITS COMBO TABLET (FP) PO SCH (10:19)
[2018-04-21] MEDS: SENNOSIDES 8.6MG TABLET (FP) PO SCH (10:19)
[2018-04-21] MEDS ORDERED: PT OWN MED DRAWER 7, Y5N ONE (10:55)
[2018-04-21] MEDS: oxyCODONE HCL 5 MG TABLET PO PRN (10:56)
[2018-04-21] MEDS: ACETAMINOPHEN 325 MG TABLET (FP) PO PRN (10:57)
[2018-04-21 14:10] VITALS: BP 106/59; PULSE 74; TEMP 98.8
--- NOTE | 2018-04-21 15:09 | DS ---
Physical Examination Vital Signs: Vital Signs Temperature 98.8 F 04/21/18 14:10 Pulse Rate 74 04/21/18 14:10 Respiratory Rate 20 04/21/18 10:00 Blood Pressure 106/59 L 04/21/18 14:10 O2 Sat by Pulse Oximetry (%) 95 04/20/18 22:00 Constitutional: Yes: No Distress Eyes: Yes: WNL HENT: Yes: WNL Neck: Yes: WNL Cardiovascular: Yes: WNL Respiratory: Yes: WNL Gastrointestinal: Yes: WNL Renal/: Yes: WNL Musculoskeletal: Yes: Muscle Pain Extremities: Yes: WNL Edema: No Peripheral Pulses WNL: Yes Integumentary: Yes: WNL Wound/Incision: Yes: Clean/Dry Neurological: Yes: WNL ...Motor Strength: RLE Psychiatric: Yes: WNL Labs: CBC, BMP 04/20/18 06:00 04/20/18 06:00 Discharge Summary Reason For Visit: HIP FRACTURE Current Active Problems Fall (Acute) Hip fracture (Acute) Oropharyngeal cancer (Acute) Syncope and collapse (Acute) Procedures: Principal: HIP SURGERY RIGHT Hospital Course: ADMITTED FOR ACUTE RIGHT HIP FRACTURE, SURGICAL REPAIR, FOLLOWED IN HOSPITAL DC PLANNING HOME REFUSED SNF Condition: Guarded - Instructions Diet, Activity, Other Instructions: SEE DR OLIVER 2 WEEKS ORTHOPEDIC FOLLOW UP 1 WEEK Referrals: Gonsalo Oliver MD [Primary Care Provider] - Disposition: VNS/HOME HEALTH CARE - Home Medications Comprehensive Discharge Medication List: Ambulatory Orders Atorvastatin Ca [Lipitor] 1 tab PO WEEKLY 04/18/18 Acetaminophen [Tylenol .Regular Strength -] 325 mg PO Q6H PRN tablet 04/21/18 Calcium 500Mg/Vit-D 200 Units [Os-Parmjit 500+D -] 1 tab PO BID tab 04/21/18 Docusate Sodium [Colace -] 100 mg PO TID capsule 04/21/18
== END 2018-04-21 17:11 | disposition home health service (06) | DRG 482 ==
LOC: JER 12:55 → JERBED 17:21 → J6S 22:44 → J4S 04-19 12:26 → J6S 04-20 16:00
PROVIDERS: ADMIT Family Medicine; ATTEND Family Medicine
PROC: 0QS604Z Reposition Right Upper Femur with Internal Fixation Device, Open Approach (ICD-10-PCS; principal; 2018-04-18 15:00)
DX: S72.001A Fracture of unspecified part of neck of right femur, initial encounter for closed fracture (principal); C10.9 Malignant neoplasm of oropharynx, unspecified; R55 Syncope and collapse; I95.9 Hypotension, unspecified; W01.0XXA Fall on same level from slipping, tripping and stumbling without subsequent striking against object, initial encounter; Y93.89 Activity, other specified; Y92.480 Sidewalk as the place of occurrence of the external cause; Y99.8 Other external cause status
CPT/HCPCS: 36415; 71045-TC-FY; 73502-TC-RT; 73523-TC-FY; 73700-TC-RT; 80048; 80053; 81003; 82962; 84484; 85025; 85027; 85610; 86850; 86900; 86901; 93005; 93010; 94010; 94760; 97116-GP; 97162-GP; 99284-25; J0131; J7030

== ENCOUNTER 2023-01-17 12:44 | Emergency (ER) | payer MEDICARE, OTHER ==
[2023-01-17 12:51] VITALS: BP 104/69; PULSE 72; RESP 16; TEMP 98.3; BMI 22.4
[2023-01-17 13:44] LABS: INR 1.07 (0.83-1.09); PROTHROMBIN TIME (PATIENT) 12.4 SEC (9.7-13.0)
[2023-01-17 13:47] LABS: ACTIVATED PTT 30.6 SECONDS (25.2-36.5)
[2023-01-17 13:49] LABS: HEMATOCRIT 43.8 % (35.4-49); HEMOGLOBIN 14.9 G/dL (11.7-16.9); MCH 29.9 pg (25.7-33.7); MCHC 34.1 g/dl (32.0-35.9); MEAN CELL VOLUME 87.8 fl (80-96); MEAN PLT VOLUME 6.6 fl (7.5-11.1); PLATELET COUNT 235.3 10^3/uL (134-434); RBC 4.99 10^6/uL (4.00-5.60); RDW 15.6 % (11.9-15.9); WHITE BLOOD COUNT 7.6 10^3/uL (4.0-10.8)
[2023-01-17 13:53] LABS: PLATELET ESTIMATE ADEQUATE
[2023-01-17 14:21] LABS: ALBUMIN 4.2 g/dl (3.4-5.0); BLOOD UREA NITROGEN 22.3 mg/dl (7-18); CALCIUM 9.6 mg/dl (8.5-10.1); CREATININE 1.2 mg/dl (0.6-1.3); POTASSIUM 4.9 mmol/L (3.5-5.1); SGOT/AST 21.6 U/L (15-37); SGPT/ALT 10.6 U/L (7-52); TOT PROT 6.9 g/dl (6.4-8.2)
[2023-01-18 09:10] LABS: BILIRUBIN,TOTAL 1.2 mg/dl (0.2-1)
== END 2023-01-17 16:52 | disposition left against medical advice (07) ==
LOC: FER 12:44
DX: R07.2 Precordial pain (principal); R06.9 Unspecified abnormalities of breathing
CPT/HCPCS: 36415; 71275-TC; 80053; 84484; 85027; 85610; 85730; 93005; 99285-25; Q9967